=== PATIENT | female | born 1950 | race African-American/Black ===

== ENCOUNTER 2019-06-15 10:05 | Outpatient (CLI) | payer MEDICARE, SELFPAY ==
--- NOTE | ~2019-06-15 | MM_ITS ---
EXAMINATION: MM screening trish BI w [place] HISTORY: Screening mammogram TECHNIQUE: Craniocaudal and mediolateral oblique 3-D tomosynthesis images were obtained and synthetic 2-D images were generated. CAD analysis was submitted and interpreted. COMPARISON: 06/16/2018, 04/06/2017 bilateral digital screening mammogram examinations BREAST PARENCHYMAL COMPOSITION: The breasts are almost entirely fatty. FINDINGS: Numerous benign secretory calcifications are noted on the left. Magnification views of a cl uster of grouped microcalcifications in the posterior lower outer left breast (craniocaudal Tomosynth esis image 18/62) is recommended. Minimal benign calcification on the right. There is no evidence of suspicious mass, calcification, or architectural distortion to suggest malign misael in either breast. There has been no suspicious interval change. IMPRESSION: 1. Cluster of grouped microcalcifications in the posterior lower outer left breast 2. Diagnostic left mammogram with magnification views is recommended. BI-RADS Category 0: Incomplete: Needs additional imaging evaluation. Reviewed, dictated and finalized at location A. [employer] IMPRESSION: 1. Cluster of grouped microcalcifications in the posterior lower outer left alexandra ast 2. Diagnostic left mammogram with magnification views is recommended. BI-RADS Category 0: Incomplete: Needs additional imaging evaluation.
== END 2019-06-15 10:06 | disposition home or self-care (01) ==
LOC: ANHIMG 10:12
PROVIDERS: Visit Provider Obstetrics & Gynecology
DX: Z12.31 Encounter for screening mammogram for malignant neoplasm of breast (principal); R92.8 Other abnormal and inconclusive findings on diagnostic imaging of breast
CPT/HCPCS: 77063; 77067

== ENCOUNTER 2019-08-10 11:05 | Outpatient (CLI) | payer MEDICARE, SELFPAY ==
--- NOTE | ~2019-08-10 | MM_ITS ---
EXAMINATION: MM diagnostic mammo unilat LT HISTORY: Cluster grouped microcalcifications in posterior lower outer left breast on screening mammog fara of TECHNIQUE: Additional ML 3-D tomosynthesis images of the left breast were performed and synthetic 2-D images were generated. Magnification ML and cc views. CAD analysis was submitted and interpreted. COMPARISON: 06/15/2019 bilateral digital screening mammogram FINDINGS: There is a small cluster of grouped fine granular indeterminate microcalcifications in the posterior aspect of the lower outer quadrant left breast. Stereotactic biopsy is recommended. IMPRESSION: 1. Small cluster of grouped fine granular indeterminate microcalcifications in posterior lower outer left breast 2. Stereotactic biopsy of left breast is recommended BI-RADS category 4, suspicious findings. Dr. Alejo left a voicemail with the finding and recommendation for left stereotactic biopsy at [phone] as prompted on 08/10/2019 at 1358 hours. Reviewed, dictated and finalized at location A. IMPRESSION: 1. Small cluster of grouped fine granular indeterminate microcalcifications in posterior lower outer left breast 2. Stereotactic biopsy of left breast is recommended BI-RADS category 4, suspicious findings. Dr. Alejo left a voicemail with the finding and recommendation for left stereota ctic biopsy at [phone] as prompted on 08/10/2019 at 1358 hours.
== END 2019-08-10 11:06 | disposition home or self-care (01) ==
LOC: ANHIMG 11:09
PROVIDERS: Visit Provider Obstetrics & Gynecology
DX: R92.8 Other abnormal and inconclusive findings on diagnostic imaging of breast (principal)
CPT/HCPCS: 77065

== ENCOUNTER 2021-02-19 15:39 | Outpatient (CLI) | payer MEDICARE, SELFPAY ==
--- NOTE | ~2021-02-19 | MM_ITS ---
EXAMINATION: MM screening trish BI w [place] HISTORY: Screening mammogram TECHNIQUE: Craniocaudal and mediolateral oblique 3-D tomosynthesis images were obtained and synthetic 2-D images were generated. CAD analysis was submitted and interpreted. COMPARISON: 08/10/2019 diagnostic left mammogram BREAST PARENCHYMAL COMPOSITION: The breasts are almost entirely fatty. FINDINGS: There is a biopsy marker in the outer mid left breast; history of benign left breast biopsy . Again noted are bilateral benign calcifications, more numerous on the left. There is no evidence of suspicious mass, calcification, or architectural distortion to suggest malign misael in either breast. There has been no suspicious interval change. IMPRESSION: 1. No mammographic evidence of malignancy. 2. Recommend routine screening mammography in one year. BI-RADS Category 2: Benign finding(s). Reviewed, dictated and finalized at location A.
== END 2021-02-19 15:40 | disposition home or self-care (01) ==
PROVIDERS: Visit Provider Obstetrics & Gynecology
DX: Z12.31 Encounter for screening mammogram for malignant neoplasm of breast (principal)
CPT/HCPCS: 77063; 77067